=== PATIENT | male | born 1995 | race Caucasian/White ===

== ENCOUNTER 2016-08-29 01:59 | Emergency (ER) | payer BC, OTHER ==
[~2016-08-29] VITALS: Ht 182.9 cm; Wt 65.8 kg
[2016-08-29 02:00] VITALS: O2SAT 98; Ht 182.9 cm; Wt 65.8 kg
--- NOTE | 2016-08-29 02:13 | EMERGENCY ROOM VISIT NOTE ---
History Report prepared by Justineibtessa: Luzma Hernandez Under the Supervision of: Dr. Barry Hodge M.D. First contact with patient: 02:00 Chief Complaint: ALCOHOL OVERDOSE Stated Complaint: ALCOHOL OVERDOSE History of Present Illness The patient is a 19 year old male who presents to the Emergency Room via EMS with complaints of alcohol overdose occurring today. The patient was drinking at his friend's apartment. He had multiple vomiting episodes at his friend's house and his friends called the ambulance. He denies any trauma or injuries. HPI is limited secondary to alcohol intoxication. Source of History: patient History Limited By: intoxication Onset: today Position: other (global) Quality: other (alcohol overdose) Review of Systems ROS is limited secondary to alcohol intoxication. Past Medical & Surgical Medical Problems: (1) No Known Active Medical Problems Family History Patient reports no known family medical history. Social History Alcohol Use: occasionally Marital Status: single Occupation Status: [employer] student Current/Historical Medications No Active Prescriptions or Reported Meds Allergies Coded Allergies: No Known Allergies (Unverified , 08/29/16) Physical Exam Vital Signs Date Time Temp Pulse Resp B/P Pulse Ox O2 Delivery O2 Flow Rate FiO2 08/29/16 07:22 98 18 154/71 96 08/29/16 06:30 98 12 184/73 96 Room Air 08/29/16 06:12 98 08/29/16 06:09 97 14 95 Room Air 08/29/16 05:59 156/83 08/29/16 05:39 89 13 94 08/29/16 05:29 138/95 08/29/16 05:09 86 12 95 08/29/16 05:04 87 14 96 Room Air 08/29/16 04:59 141/83 08/29/16 04:34 91 13 94 Room Air 08/29/16 04:29 112/66 08/29/16 04:05 89 12 95 Room Air 08/29/16 04:00 89 12 96 Room Air 08/29/16 03:59 120/68 08/29/16 03:30 89 13 94 Room Air 08/29/16 03:29 132/77 08/29/16 03:20 90 13 93 Room Air 08/29/16 02:59 121/64 08/29/16 02:50 86 13 93 Room Air 08/29/16 02:49 85 13 93 08/29/16 02:44 84 13 93 08/29/16 02:39 87 13 94 08/29/16 02:34 83 13 94 08/29/16 02:29 82 13 138/69 94 08/29/16 02:24 84 15 95 08/29/16 02:19 116 18 98 08/29/16 02:14 99 18 97 08/29/16 02:09 93 17 97 08/29/16 02:09 104 08/29/16 02:04 137/85 08/29/16 02:00 98 Room Air 08/29/16 02:00 36.3 110 16 137/85 98 Room Air Physical Exam GENERAL: Patient is moderately intoxicated. Smells of alcohol. Well appearing and in no acute distress. HEAD: No evidence of Trauma. AT/NC EYES: Injected conjunctiva. Normal EOM. Pupils equal/reactive. ENT: Mucous membranes moist, no nasal congestion, . NECK: No step-offs, no adenopathy, no meningismus, trachea is midline. LUNGS: No dyspnea. Clear to auscultation and equal bilaterally. No wheeze, no rhonchi. HEART: Regular rate and rhythm. No murmurs, rubs, gallops appreciated. ABDOMEN: Soft, nontender, bowel sounds positive, no masses appreciated, no peritonitis. BACK: No midline tenderness, no CVA tenderness EXTREMITIES: Normal motion all extremities, no cyanosis, no edema. NEUROLOGIC: Intoxicated. Slurred speech. Alert, oriented. No acute motor or sensory deficits, no focal weakness, cranial nerves grossly intact. SKIN: No rash, no jaundice, no diaphoresis. Medical Decision & Procedures Laboratory Results 08/29/16 02:10 Test 08/29/16 02:10 Anion Gap 12.0 mmol/L (3-11) Est Creatinine Clear Calc Drug Dose 114.5 ml/min Estimated GFR () 132.1 Estimated GFR (Non- 114.0 BUN/Creatinine Ratio 9.3 (10-20) Calcium Level 8.3 mg/dl (8.5-10.1) Ethyl Alcohol mg/dL 279.0 mg/dl (0-3) Laboratory results as reviewed by me. ED Course 0200: The patient was evaluated in room B11B. A complete history and physical exam was performed. 0307: The patient is currently sleeping. 0502: The patient is sound asleep. 0647: I reevaluated the patient who feels much better. 0800: Reevaluated the patient. Discussed results and discharge instructions: He verbalized understanding and agreement. The patient is ready for discharge. Medical Decision Differential: Alcohol Intoxication, Drug Intoxication, Electrolyte Abnormality, Trauma, Intracranial Event, Toxicological, Excited Delirium, Serotonin Syndrome , amongst other pathologies entertained. 20 yr old intoxicated male brought in by EMS after vomiting at friend's place who called EMS. Patient with no evidence nor history for trauma. Protecting airway and breathing comfortably throughout ED stay. EtOH positive. Monitored and discharged when awake, alert, oriented and denies any complaints. Impression Primary Impression: Alcohol intoxication Additional Impression: Hypertension Scribe Attestation The scribe's documentation has been prepared under my direction and personally reviewed by me in its entirety. I confirm that the note above accurately reflects all work, treatment, procedures, and medical decision making performed by me. Departure Information Dispostion Home / Self-Care Prescriptions No Active Prescriptions or Reported Meds Forms HOME CARE DOCUMENTATION FORM, IMPORTANT VISIT INFORMATION Patient Instructions A Signature Page, Alcohol Intoxication - [facility], My [facility] Additional Instructions Please have your blood pressure rechecked in next 1 to 2 weeks to verify it has returned to normal as it was elevated this evening.
[2016-08-29 02:36] LABS: BUN/CREATININE RATIO 9.3 (10-20); CALCIUM 8.3 mg/dl (8.5-10.1); CREATININE 0.95 mg/dl (0.60-1.40); POTASSIUM 3.4 mmol/L (3.5-5.1)
[2016-08-29 07:22] VITALS: BP 154/71; PULSE 98; O2SAT 96
== END 2016-08-29 07:22 | disposition home or self-care (01) ==
LOC: EDBD 01:59 → C.EDB 02:00
DX: F10.129 Alcohol abuse with intoxication, unspecified (principal); Y90.8 Blood alcohol level of 240 mg/100 ml or more; I10 Essential (primary) hypertension